=== PATIENT | male | born 1980 | race Caucasian/White ===

== ENCOUNTER 2019-05-01 08:02 | Emergency (ER) | payer MEDICAID ==
[~2019-05-01] VITALS: Ht 170.2 cm; Wt 68.0 kg
[2019-05-01 08:50] VITALS: BP 121/73
== END 2019-05-01 10:08 | disposition home or self-care (01) ==
LOC: ER 08:28
DX: T43.625A Adverse effect of amphetamines, initial encounter (principal); K62.89 Other specified diseases of anus and rectum; F12.10 Cannabis abuse, uncomplicated; F17.200 Nicotine dependence, unspecified, uncomplicated; Y92.89 Other specified places as the place of occurrence of the external cause
CPT/HCPCS: 72170; 99283